=== PATIENT | female | born 1950 | race Caucasian/White ===

== ENCOUNTER 2017-11-10 11:49 | Day surgery (SDC) | payer BC ==
--- NOTE | 2017-11-10 06:54 | History and Physical Report ---
DATE: 11/09/2017. CHIEF COMPLAINT AND HISTORY OF CHIEF COMPLAINT: This patient presents with a history of a postlaminectomy radiculopathy. She is here for an implanted spinal catheter infusion trial with hydromorphone. PAST MEDICAL HISTORY: Hypertension. PAST SURGICAL HISTORY: Lumbar spinal fusion. SOCIAL HISTORY: Caffeine. FAMILY HISTORY: Cancer, hypertension. MEDICATIONS ON ADMISSION: To be provided. ALLERGIES: Celexa and adhesive tape. REVIEW OF SYSTEMS: The patient is appropriate and in no acute distress. The remainder of the systems review shows glasses, headaches, blood pressure problems, degenerative arthritis, irritable bowel syndrome, depression, difficulty sleeping. PHYSICAL EXAMINATION: General: Height and weight are not known. Vital Signs: Not available. HEENT: Within normal limits. Lungs: Clear. Heart: Regular rate and rhythm. Abdomen: Nontender. Musculoskeletal: Examination of the musculoskeletal system shows diffuse tenderness throughout the lumbar spine. Range of motion does produce pain throughout the low back and extending into the lower extremities. Lower extremity functionality is intact. There does not appear to be any focal sensory or motor deficits. Ambulation: Intact. Neurologic: Cranial nerves are intact. IMPRESSION: 1. POSTLUMBAR LAMINECTOMY SYNDROME, ICD-10 CODE M96.1. 2. LUMBAR RADICULOPATHY, ICD-10 CODE M54.16 AND M54.17. PLAN: The patient is here for an implanted spinal catheter infusion trial with hydromorphone. The potential risks, side effects, and complications have all been carefully reviewed and discussed. The implanted catheter technique has been reviewed and discussed. Information was provided by the optometrist/practice owner and has been reviewed. The potential risks, side effects, and complications have been discussed and include spinal cord injury, nerve root injury, paralysis, and spinal headache. She was given the opportunity to talk to a [employer] eligibility services representative directly, and all of her questions were answered. We will consider the procedure an overnight stay; although an outpatient status could be assigned. A blood patch will be performed as an adjunct measure to help prevent a spinal headache. This will require the patient to lie flat for four hours and then she will be slowly elevated for one hour. The patient understands. All of her questions have been answered. JOB NUMBER: [id number] cc: Adriana Gary
[~2017-11-10 11:49] MED LIST: ACETAMINOPHEN 1,000 MG/100 ML BTL IV ONE; CEFAZOLIN 2 Gram 2 GM/50 ML BAG IVPB ONE; FAMOTIDINE 20MG TABLET PO ONE; HYDROMORPHONE PF 2MG/ML AMP 0.008 MG in 0.9 % SODIUM CHLORIDE 10ML VIA 0.996 ML IV ONE; HYDROMORPHONE PF 2MG/ML AMP 4 MG in 0.9 % SODIUM CHLORIDE 500ML 498 ML IV ONE; MECLIZINE 25 MG TABLET PO ONE; METOCLOPRAMIDE 10 MG TABLET PO ONE
[2017-11-10] MEDS ORDERED: LIDOCAINE 1% W/EPI 1:200,000 MPF 30ML SQ ONE (11:50)
[2017-11-10] MEDS ORDERED: MIDAZOLAM HCL 2MG/2ML VIAL IV ONE (11:50)
[2017-11-10] MEDS ORDERED: FENTANYL PF 100MCG/2ML VIAL IV ONE (11:50)
[2017-11-10] MEDS ORDERED: LIDOCAINE 2% MDV (20MG/ML) 20ML VIAL IV ONE (11:50)
[2017-11-10] MEDS ORDERED: BUPIVACAINE 0.5% W/EPI MPF 30 ML VIAL IVP ONE (11:50)
[2017-11-10] MEDS ORDERED: CEFAZOLIN 1G VIAL IM ONE (11:50)
[2017-11-10] MEDS ORDERED: PROPOFOL 10 MG/ML VIAL IV ONE (11:50)
[2017-11-10] MEDS ORDERED: METOCLOPRAMIDE 10 MG TABLET PO PRN (14:55)
[2017-11-10] MEDS ORDERED: DIPHENHYDRAMINE HCL 25 MG CAPSULE PO PRN ×2 (14:55)
[2017-11-10] MEDS ORDERED: ACETAMINOPHEN 325 MG TAB PO PRN ×2 (14:55)
[2017-11-10] MEDS ORDERED: TEMAZEPAM 15 MG CAPSULE PO PRN ×2 (14:55)
[2017-11-10] MEDS ORDERED: DIPHENHYDRAMINE HCL 50 MG/ML VIAL IVP PRN ×2 (14:55)
[2017-11-10] MEDS ORDERED: HYDROMORPHONE HCL 2 MG/ML VIAL IM PRN ×2 (14:55)
[2017-11-10] MEDS ORDERED: NALOXONE 0.4 MG/1 ML VIAL IVP PRN (14:55)
[2017-11-10] MEDS ORDERED: SENNOSIDES/DOCUSATE SODIUM UD CAPSULE PO PRN ×2 (14:55)
[2017-11-10] MEDS ORDERED: AL HYDROX/MAG HYDROX 30ML UD PO PRN (14:55)
[2017-11-10] MEDS ORDERED: METOCLOPRAMIDE HCL 10 MG/2 ML VIAL IVP PRN (14:55)
[2017-11-10] MEDS ORDERED: OXYCODONE/APAP 10MG-325MG TABLET PO PRN ×2 (14:55)
[2017-11-10] MEDS ORDERED: HYDROCODONE/APAP 7.5/325MG TABLET PO PRN ×2 (14:55)
[2017-11-10] MEDS: RINGERS SOLUTION,LACTATED 1,000 ML IV SCH ×3 (16:19→23:48)
[2017-11-10] MEDS ORDERED: MORPHINE SULFATE 15 MG TABLET.ER PO ONE (16:45)
[2017-11-10] MEDS: CEFAZOLIN 2 Gram 2 GM/50 ML BAG IVPB SCH (22:00)
[2017-11-10] MEDS ORDERED: AMLODIPINE BESYLATE 5MG TAB PO SCH (22:00)
[2017-11-10] MEDS ORDERED: SIMVASTATIN 10MG TABLET PO SCH (22:00)
[2017-11-11] MEDS: CEFAZOLIN 2 Gram 2 GM/50 ML BAG IVPB SCH (05:39)
[2017-11-11] MEDS ORDERED: MORPHINE SULFATE 15 MG TABLET.ER PO SCH (06:00)
[2017-11-11] MEDS: RINGERS SOLUTION,LACTATED 1,000 ML IV SCH (06:10)
[2017-11-11] MEDS ORDERED: FLUOXETINE HCL 20 MG CAPSULE PO SCH (10:00)
[2017-11-11] MEDS ORDERED: HYDROCHLOROTHIAZIDE 12.5 MG CAPSULE PO SCH (10:00)
[2017-11-11] MEDS ORDERED: LISINOPRIL 20 MG TABLET PO SCH (10:00)
[2017-11-11] MEDS ORDERED: BUPROPION HCL 150 MG TAB.SR.12H PO SCH (10:00)
[2017-11-11] MEDS ORDERED: DOCUSATE SODIUM 100 MG CAPSULE PO SCH (10:00)
--- NOTE | 2017-11-12 16:08 | Medical Records Consult ---
DATE OF SURGERY: 11/10/17. PREOPERATIVE DIAGNOSES: 1. POST LUMBAR LAMINECTOMY SYNDROME, ICD-10 CODE = M96.1. 2. LUMBAR RADICULOPATHY ICD-10 CODE = M54.16 AND M54.17. SURGERY: 1. FLUOROSCOPIC-GUIDED ACCESS SPINAL SPACE AT L2-3, PLACEMENT OF THIN-WALLED SPINAL CATHETER T12. 2. DIAGNOSTIC MYELOGRAPHY WITH RADIOLOGIC SUPERVISION AND INTERPRETATION. 3. SPINAL OPIOID BOLUS OF HYDROMORPHONE 0.002 MG SPINAL SPACE. 4. INCISION, SUBCUTANEOUS DISSECTION AND ANCHORING OF SPINAL CATHETER TO SUPRASPINOUS FASCIA USING ANCHORING DEVICE AND NONABSORBABLE SUTURE. 5. INCISION, SUBCUTANEOUS DISSECTION AND CREATION OF SUBCUTANEOUS POUCH AT RIGHT POSTERIOR GLUTEAL MARGIN ULTIMATELY FOR PUMP. FORMATION OF SMALL SUBCUTANEOUS POUCH. 6. SPINAL CATHETER TUNNELED INTO POSTERIOR GLUTEAL POUCH. SPINAL CATHETER INTERFACE RESECTED WITH SECOND CATHETER COMPONENT BY WAY OF CONNECTOR. SECOND CATHETER COMPONENT TUNNELED 6 CM SUPERIOR EXITING SKIN, INTERFACED TO EXTERNAL PUMP, STARTING INFUSION AT 0.08 MG HYDROMORPHONE PER DAY. 7. CLOSURE OF MIDLINE INCISION WITH VICRYL FOR FASCIA AND RUNNING SUBCUTICULAR VICRYL FOR SKIN. CLOSURE OF POSTERIOR GLUTEAL POUCH WITH RUNNING NYLON. 8. EPIDURAL BLOOD PATCH AT L3-4. 20 ML AUTOLOGOUS BLOOD DRAWN STERILE TECHNIQUE. 9. PLACEMENT OF DRESSINGS SECURING CATHETER AND ALL CONNECTIONS WELL INCISIONAL SITES UNDER STERILE DRESSING. The patient was transported to the Recovery Room flat with pillow under head and knees, stable, showing no side-effects from the procedure or the sedation. She will be kept overnight for observatoin and discharged in the morning. DISCHARGE INSTRUCTIONS: 1. Sites are to remain clean and dry, no showing or bathing in any way that would disrupt dressings. 2. Standard medications resumed including Levaquin, the antibiotic, 500 mg once a day for 14 days. 3. The trial will run 12 to 14 days. During this period of time, we will evaluate the pain control, functionality, quality of life, medication reduction. 4. Reprogrammings will be scheduled during this 14 day period. Once we have increased the infusion to the desired level of pain control, we will evaluate for possible permanent implant. 5. Spinal opioid side-effects: respiratory depression, nausea, vomiting, constipation, urinary retention, lightheadedness, or rash have all been discussed and reviewed. All other instructions provided. Numbers to contact if problems given. We will evaluate her in 24 to 48 hours. cc: Dr. Eldridge JOB NUMBER: [id number] MTDD
--- NOTE | 2017-11-13 00:53 | RADIOLOGY REPORT ---
EXAM: SPINE, 1 VIEW HISTORY: PAIN PUMP TRIAL. TECHNIQUE: Single AP view of the thoracolumbar spine. COMPARISON: AP thoracolumbar spine 05/22/15. FINDINGS: Battery pack again seen overlying the left lower quadrant of the abdomen. Two stimulating wires extend from this to overlie the spine at the approximate L1-2 level and then ascend up such that their superior-most extent is not included on this film. However, as visualized the segmented portion of the wires does extend up to at least the level of the superior aspect of the body of T7. Lumbar dextroscoliosis with degenerative change in the spine. Some wire and catheter density overlying the right side of the abdomen. IMPRESSION: SPINAL STIMULATOR WIRES EXTEND UP TO THE VERY SUPERIOR EDGE OF THE FILM BUT AT LEAST TO THE T7 LEVEL, DESCRIBED ABOVE. JOB NUMBER: [id number] MTDD
--- NOTE | 2017-11-18 09:53 | Operative Note ---
DATE OF SURGERY: 11/10/17. PREOPERATIVE DIAGNOSES: 1. POST LUMBAR LAMINECTOMY SYNDROME, ICD-10 CODE = M96.1. 2. LUMBAR RADICULOPATHY ICD-10 CODE = M54.16 AND M54.17. SURGERY: 1. FLUOROSCOPIC-GUIDED ACCESS SPINAL SPACE AT L2-3, PLACEMENT OF THIN-WALLED SPINAL CATHETER T12. 2. DIAGNOSTIC MYELOGRAPHY WITH RADIOLOGIC SUPERVISION AND INTERPRETATION. 3. SPINAL OPIOID BOLUS OF HYDROMORPHONE 0.002 MG SPINAL SPACE. 4. INCISION, SUBCUTANEOUS DISSECTION AND ANCHORING OF SPINAL CATHETER TO SUPRASPINOUS FASCIA USING ANCHORING DEVICE AND NONABSORBABLE SUTURE. 5. INCISION, SUBCUTANEOUS DISSECTION AND CREATION OF SUBCUTANEOUS POUCH AT RIGHT POSTERIOR GLUTEAL MARGIN ULTIMATELY FOR PUMP. FORMATION OF SMALL SUBCUTANEOUS POUCH. 6. SPINAL CATHETER TUNNELED INTO POSTERIOR GLUTEAL POUCH. SPINAL CATHETER INTERFACE RESECTED WITH SECOND CATHETER COMPONENT BY WAY OF CONNECTOR. SECOND CATHETER COMPONENT TUNNELED 6 CM SUPERIOR EXITING SKIN, INTERFACED TO EXTERNAL PUMP, STARTING INFUSION AT 0.08 MG HYDROMORPHONE PER DAY. 7. CLOSURE OF MIDLINE INCISION WITH VICRYL FOR FASCIA AND RUNNING SUBCUTICULAR VICRYL FOR SKIN. CLOSURE OF POSTERIOR GLUTEAL POUCH WITH RUNNING NYLON. 8. EPIDURAL BLOOD PATCH AT L3-4. 20 ML AUTOLOGOUS BLOOD DRAWN STERILE TECHNIQUE. 9. PLACEMENT OF DRESSINGS SECURING CATHETER AND ALL CONNECTIONS WELL INCISIONAL SITES UNDER STERILE DRESSING. PROCEDURE: Intravenous line, vital sign monitoring, IV sedation by Anesthesia, patient position on the operating room table prone. Sterile prep, sterile technique. Under imaging, the spinal space for access was identified at L2-3 with a possible epidural blood patch at 3-4. The skin at both sites infiltrated. A 20-gauge spinal needle, beveled with a long axis in a paramedian approach was inserted into the spinal space at L2-3. With CSF flow, a thin- walled spinal catheter was advanced and positioned at T12. The catheter was clamped to stop CSF leak. Skin above and below the needle infiltrated, incision made, and subcutaneous dissection was conducted to the supraspinous fascia. The needle was removed and the catheter was anchored to the supraspinous fascia with a locking anchor and nonabsorbable suture. There was still CSF through the catheter identified. Diagnostic myelography was then performed, the resulting flow characteristics showed appropriate flow in the spinal space. Myelogram characteristics noted. Confirming position and a straight catheter, a bolus of Hydromorphone at 0.002 mg given into the spinal space. The catheter was clamped. An incision was then right of the midline at the posterior/superior gluteal margin. The skin infiltrated, incision made, and subcutaneous dissection was conducted to form a small pouch. A tunneling tool was then used to carry the spinal catheter into the gluteal pouch and then this catheter was interfaced with a second catheter component, which was then tunneled 6 cm superior to this pouch and exited the skin. This external catheter was then interfaced to an external pump, which was set to deliver by continuous infusion of Hydromorphone at 0.008 mg a day, which was set to deliver 0.08 mg per day Hydromorphone. The midline incision was closed with Vicryl for fascia, running subcuticular Vicryl for skin. The posterior gluteal margin pouch incision was closed with running nylon. At L3-4, which is one level below the dural puncture , an 18-gauge Tuohy needle with [id number] into the epidural space. Simultaneously, 20 mL of autologous blood drawn sterile technique from the left antecubital. This blood, maintaining sterility, was then placed onto the field and an epidural blood patch was performed at this level with this blood. The epidural needle was removed. A sterile dressing was applied to all sites and securing the catheter under sterile dressing along with all of its connections. With the pump infusion, the patient was turned off the bed supine, pillow under head and knees, and flat. Transported to the Recovery Room stable. No side- effects from the procedure or the sedation. Full functionality of upper and lower extremities was noted. Appropriate conversational skills identified. She was monitored. She will be transported to the Floor and monitored flat for four hours, slowly elevated for one, and then be kept overnight for observation. DISCHARGE INSTRUCTIONS: 1. Sites are to remain clean and dry, no showing or bathing in any way that would disrupt dressings. 2. Standard medications resumed including Levaquin, the antibiotic, 500 mg once a day for 14 days. 3. The trial will run 12 to 14 days. During this period of time, we will evaluate the pain control, functionality, quality of life, medication reduction. 4. Reprogrammings will be scheduled during this 14 day period. Once we have increased the infusion to the desired level of pain control, we will evaluate for possible permanent implant. 5. Spinal opioid side-effects: respiratory depression, nausea, vomiting, constipation, urinary retention, lightheadedness, or rash have all been discussed and reviewed. All other instructions provided. Numbers to contact if problems given. We will evaluate her in 24 to 48 hours. cc: Dr. Eldridge JOB NUMBER: [id number] dictated on 11/17/17. [facility]
== END 2017-11-11 10:40 | disposition home or self-care (01) ==
LOC: SUR 11:49 → MEDSURG 14:54 → SUR 11-11 10:40
PROVIDERS: ATTEND Pain Medicine Interventional Pain Medicine
DX: M96.1 Postlaminectomy syndrome, not elsewhere classified (principal); M54.16 Radiculopathy, lumbar region; M54.17 Radiculopathy, lumbosacral region; E78.00 Pure hypercholesterolemia, unspecified; F31.9 Bipolar disorder, unspecified; I10 Essential (primary) hypertension; K21.9 Gastro-esophageal reflux disease without esophagitis
CPT/HCPCS: 62350; 62360; 00630; 72020; 94760 ×2; Q9967; J3490 ×2; J3010; J0690 ×2; J1170; J7040; J7120

== ENCOUNTER → 2017-11-24 | Day surgery (SDC) | payer BC ==
[~2017-11-24] MED LIST changes: +*PACU ONLY* KETAMINE HCL 10 MG/ML (20ML) VIAL IV ONE; +BUPIVACAINE 0.5% W/EPI MPF 30 ML VIAL IVP ONE; +FENTANYL PF 100MCG/2ML VIAL IV ONE; +HYDROMORPHONE HCL 0.04 GM in 0.9 % SODIUM CHLORIDE 10ML VIA 20 ML IV ONE; +HYDROMORPHONE PF 2MG/ML AMP 0.004 MG in 0.9 % SODIUM CHLORIDE 10ML VIA 0.998 ML IV ONE; -HYDROMORPHONE PF 2MG/ML AMP 0.008 MG in 0.9 % SODIUM CHLORIDE 10ML VIA 0.996 ML IV ONE; -HYDROMORPHONE PF 2MG/ML AMP 4 MG in 0.9 % SODIUM CHLORIDE 500ML 498 ML IV ONE; +LIDOCAINE 1% W/EPI 1:200,000 MPF 30ML SQ ONE; +LIDOCAINE 2% MDV (20MG/ML) 20ML VIAL IV ONE; +MIDAZOLAM HCL 2MG/2ML VIAL IV ONE; +PROPOFOL 10 MG/ML VIAL IV ONE
--- NOTE | 2017-11-24 02:29 | History and Physical Report ---
DATE: 11/23/2017. CHIEF COMPLAINT AND HISTORY OF CHIEF COMPLAINT: This patient presents with a history of intractable post lumbar laminectomy radiculopathy. Implanted spinal catheter infusion trial is ongoing and is being completed today. She has achieved greater than 75 percent pain control and is here for permanent implant. PAST MEDICAL HISTORY: Hypertension. PAST SURGICAL HISTORY: Lumbar spinal surgery. MEDICATIONS ON ADMISSION: To be provided. ALLERGIES: Celexa, adhesive tape. SOCIAL HISTORY: Caffeine. FAMILY HISTORY: Cancer, hypertension. REVIEW OF SYSTEMS: The patient seems appropriate and in no acute distress. The remainder of the systems review shows glasses, headaches, blood pressure problems, degenerative arthritis, irritable bowel syndrome, depression, difficulty sleeping. PHYSICAL EXAMINATION: General: Height and weight are unavailable. Vital Signs: Unavailable. HEENT: Within normal limits. Lungs: Clear. Heart: Regular rate and rhythm. Abdomen: Nontender. Musculoskeletal: Examination of the musculoskeletal system shows the dressings securing the implanted catheter trial in place. An external pump is identified and is interfaced to the catheter. Primary pain pattern is a postlaminectomy pain across the back and extending into both legs. Her motor and sensory field function shows some deficits across the front and back surfaces. There is a generalized weakness to both legs. Ambulation: No assistive device utilized. Neurologic: Cranial nerves are intact. IMPRESSION: 1. POST LUMBAR LAMINECTOMY SYNDROME, ICD-10 CODE M96.1. 2. LUMBAR RADICULOPATHY, ICD-10 CODE M54.16 AND M54.17. 3. IMPLANTED SPINAL CATHETER INFUSION TRIAL WITH HYDROMORPHONE. PLAN: The patient is here to complete the implant process with removal of the external components and implantation of the pump and interfacing this to the indwelling catheter. Although an overnight stay will be evaluated, this could easily be an outpatient procedure. The potential risks, side effects, and complications have all been reviewed and discussed. JOB NUMBER: [id number] cc: Adriana Gary
--- NOTE | 2017-11-25 07:29 | Operative Note ---
DATE OF SURGERY: 11/24/2017. PREOPERATIVE DIAGNOSIS: 1. POST LUMBAR LAMINECTOMY SYNDROME, ICD-10 CODE M96.1. 2. LUMBAR RADICULOPATHY, ICD-10 CODE M54.16 AND M54.17. 3. IMPLANTED SPINAL CATHETER INFUSION TRIAL WITH HYDROMORPHONE. POSTOPERATIVE DIAGNOSIS: 1. POST LUMBAR LAMINECTOMY SYNDROME, ICD-10 CODE M96.1. 2. LUMBAR RADICULOPATHY, ICD-10 CODE M54.16 AND M54.17. 3. IMPLANTED SPINAL CATHETER INFUSION TRIAL WITH HYDROMORPHONE. OPERATION: 1. Incision, subcutaneous dissection, and creation of subcutaneous pouch at right posterior gluteal margin. 2. Resection and revision of internal spinal catheter interfaced with second catheter component by a connector. 3. Removal of external spinal catheter. 4. Interface revised catheter to pump, 20 mL programmable, prefilled with hydromorphone 1.0 mg per mL interfaced with revised catheter. 5. Placement of pump into formed pouch at right posterior gluteal margin. 6. Placement of curved 24-gauge Meade needle through the access port for the programmable pump, aspirating and clearing catheter of 1.0 mL of opioid and cerebrospinal fluid mixture. 7. Diagnostic myelography with radiologic supervision and interpretation. 8. Placement of pump into pouch and secured to posterior fascia with nonabsorbable suture at three points with pump eyelets. 9. Closure of incision with Vicryl for the fascia and running subcuticular Vicryl for the skin. Dermabond closure. 10. Programming of pump to deliver by continuous infusion hydromorphone at 0.23 mg per day. SURGEON: Chris Ponce D.O. ANESTHESIA: Local sedation. ANESTHESIA PROVIDER: Rosy Momin CRNA INDICATION: This patient presents with a history of intractable postlumbar laminectomy radiculopathy. An implanted spinal catheter infusion trial with hydromorphone provided 75 to 80 percent pain control. Due to the failure of all other therapies and the success of the implanted catheter trial, she is here for implantation of a permanent system. DESCRIPTION OF PROCEDURE: Intravenous lines, vital sign monitoring, and intravenous sedation. Prepped and draped with sterile technique with the patient positioned prone. All of the external dressings were removed. At the right posterior gluteal margin, the skin was infiltrated. An incision was made and subcutaneous dissection was conducted to form a pouch of suitable size and depth for the pump identified as a Medtronic 20 mL programmable pump. The interface between the internal permanent catheter and the external catheter was identified and clamped. The external catheter was cut and removed by pulling away from the incision. The internal catheter was then resected and interfaced with the second catheter component by way of the connector. A new pump was placed onto the field, 20 mL programmable Medtronic, prefilled with hydromorphone at 1.0 mg per mL. The revised catheter was interfaced to the pump. Antibiotic irrigation and Bovie for hemostasis at the pouch. The pump was then placed into the pouch and secured to the posterior fascia with nonabsorbable suture. A 24-sujata Meade needle was then inserted into the access port of the pump and 1.0 mL of catheter contents was aspirated clearing the catheter of opioid and cerebrospinal fluid mixture. Contrast was then injected through the access port. The resulting myelogram with radiologic supervision and interpretation showed contrast moving through the internal network of the pump with no obstructions. Contrast was seen through the pump catheter connection with no leaks or obstructions. The catheter tip was seen at T12-L1 with appropriate flow characteristics noted. Functionality was assured. With the pump in the pouch, the incision was closed with Vicryl for the fascia and running subcuticular Vicryl for the skin. Dermabond closure. The pump was then programmed to deliver by continuous infusion hydromorphone at 0.23 mg a day. The patient was transported to the recovery room stable, showing no side effects from the procedure or the sedation. When fully awake and alert, she was prepared for discharge. DISCHARGE INSTRUCTIONS: 1. The sites are to remain clean and dry. No showering or bathing in any way that would disrupt the dressings. If this happens, contact the clinic. 2. Standard medications to be resumed including Levaquin the antibiotic 500 mg once a day for 14 days. 3. The patient will be seen in the office in five to seven days to evaluate the site. At that point, she will be cleared for further activities. 4. All other instructions were provided and numbers to contact with problems were given. 5. She was then discharged. JOB NUMBER: [id number] cc: Adriana Gary
== END | disposition home or self-care (01) ==
LOC: SUR 09:48
PROVIDERS: ATTEND Pain Medicine Interventional Pain Medicine
DX: M96.1 Postlaminectomy syndrome, not elsewhere classified (principal); M54.16 Radiculopathy, lumbar region; M54.17 Radiculopathy, lumbosacral region; F31.9 Bipolar disorder, unspecified; I10 Essential (primary) hypertension; E78.00 Pure hypercholesterolemia, unspecified
CPT/HCPCS: C1755; J1170

== ENCOUNTER 2018-06-03 05:34 | Day surgery (SDC) | payer BC ==
[~2018-06-03 05:34] MED LIST changes: -*PACU ONLY* KETAMINE HCL 10 MG/ML (20ML) VIAL IV ONE; -BUPIVACAINE 0.5% W/EPI MPF 30 ML VIAL IVP ONE; -FENTANYL PF 100MCG/2ML VIAL IV ONE; -HYDROMORPHONE HCL 0.04 GM in 0.9 % SODIUM CHLORIDE 10ML VIA 20 ML IV ONE; -HYDROMORPHONE PF 2MG/ML AMP 0.004 MG in 0.9 % SODIUM CHLORIDE 10ML VIA 0.998 ML IV ONE; -LIDOCAINE 1% W/EPI 1:200,000 MPF 30ML SQ ONE; -LIDOCAINE 2% MDV (20MG/ML) 20ML VIAL IV ONE; -MIDAZOLAM HCL 2MG/2ML VIAL IV ONE; -PROPOFOL 10 MG/ML VIAL IV ONE
[2018-06-03] MEDS ORDERED: MIDAZOLAM HCL 2MG/2ML VIAL IV ONE (05:35)
[2018-06-03] MEDS ORDERED: PROPOFOL 10 MG/ML VIAL IV ONE (05:35)
[2018-06-03] MEDS ORDERED: FENTANYL PF 100MCG/2ML VIAL IV ONE (05:35)
[2018-06-03] MEDS ORDERED: LIDOCAINE 1% W/EPI 1:200,000 MPF 30ML SQ ONE (05:35)
[2018-06-03] MEDS ORDERED: HYDROCODONE/APAP 7.5/325MG TABLET PO ONE (05:35)
[2018-06-03] MEDS ORDERED: LIDOCAINE 2% MDV (20MG/ML) 20ML VIAL IV ONE (05:35)
[2018-06-03] MEDS ORDERED: BUPIVACAINE 0.5% W/EPI MPF 30 ML VIAL IVP ONE (05:35)
[2018-06-03] MEDS ORDERED: CEFAZOLIN 1G VIAL IM ONE (05:35)
[2018-06-03] MEDS ORDERED: CEFAZOLIN 2 Gram 2 GM/50 ML BAG IVPB ONE (06:00)
[2018-06-03] MEDS ORDERED: ACETAMINOPHEN 1,000 MG/100 ML BTL IV ONE (06:00)
[2018-06-03] MEDS ORDERED: FAMOTIDINE 20MG TABLET PO ONE (06:00)
[2018-06-03] MEDS ORDERED: METOCLOPRAMIDE 10 MG TABLET PO ONE (06:00)
[2018-06-03] MEDS ORDERED: MECLIZINE 25 MG TABLET PO ONE (06:00)
--- NOTE | 2018-06-03 06:21 | History and Physical - [place] ---
CHIEF COMPLAINT/HISTORY OF CHIEF COMPLAINT: This patient presents with a history of post lumbar laminectomy with a spinal cord stimulator implant dated 05/22/15. Over the last number of months to year she has had an increasing amount of difficulties in controlling her pain with this system. Her pain pattern appears to be extending, moving higher and lower into her lower extremities and higher into her low back. The current generator has been unable to program these new areas. The conservative therapies have failed. We recommended changing her generator to the new Wavewriter technology since it presents with greater options and opportunities in waveform propagation and the ability to overlap different waveforms to help control the pain in these new areas. Nothing else appears to be helping. PAST MEDICAL HISTORY: Hypertension. PAST SURGICAL HISTORY: Lumbar spinal surgery, carpal tunnel surgery, stimulator implant and pump implant. MEDICATIONS ON ADMISSION: List to be provided. ALLERGIES: CELEXA AND ADHESIVE TAPE. FAMILY/PSYCHOSOCIAL HISTORY: Hypertension and cancer. SYSTEMS REVIEW: The patient is appropriate in no acute distress. The remainder of the systems review is positive for glasses, headaches, blood pressure problems, degenerative arthritis, inflammatory and irritable bowel syndrome, and difficulty sleeping. PHYSICAL EXAMINATION: Height is 5'4", and weight is 170. No vital signs. HEENT: Within normal limits. LUNGS: Clear. HEART: Rapid and regular. ABDOMEN: Nontender. MUSCULOSKELETAL: Examination of the musculoskeletal system shows the stimulator generator in the left posterior gluteal margin and the incision is intact. Chronic pain pattern low back and bilateral lower extremities. NEUROLOGIC: Cranial nerves are intact. IMPRESSION: 1. POST LUMBAR LAMINECTOMY SYNDROME, ICD-10 CODE M96.1 WITH RADICULOPATHY, ICD- 10 CODE M54.16 AND M54.17. 2. SPINAL CORD STIMULATOR INTERNAL GENERATOR. PLAN: The patient is here for a generator change to the new Wavewriter technology in an attempt to gain control of new areas of pain. The procedure will be considered outpatient. JOB NUMBER: [id number] [facility]
--- NOTE | 2018-06-03 12:55 | Operative Note ---
DATE: 06/03/2018. PRIMARY CARE PHYSICIAN: Lidya Eldridge M.D. PREOPERATIVE DIAGNOSIS: 1. POST LUMBAR LAMINECTOMY RADICULOPATHY, ICD-10 CODE M96.1, 2. ICD-10 CODE M54.16 AND M54.17. 3. SPINAL CORD STIMULATOR INTERNAL GENERATOR. PROCEDURES: Fluoroscopically guided incision, subcutaneous dissection, and removal and replacement of internal pulse generator at the left posterior gluteal margin. SURGEON: Chris Ponce D.O. ANESTHESIA: Local sedation. ANESTHESIA PROVIDER: Robin Brand CRNA. INDICATIONS: This patient presents with a history of intractable postlaminectomy lumbar radiculopathy. A spinal cord stimulator with internal generator has been in place for a number of years. There has been a gradual progression of her pain extending toward the opposite extremity and higher up into her spine. Because of this new pain pattern, the current generator and stimulator have been unable to keep up with the progression of pain. She is here for battery change, keeping the leads the same, to improve stimulation patterns and gain control over the new areas of pain. DESCRIPTION OF PROCEDURE: Intravenous line, vital sign monitoring, and intravenous sedation. Prepped and draped with sterile technique with the patient positioned prone. The generator at the left posterior gluteal margin was marked and infiltrated. An incision was made and subcutaneous dissection was conducted to the generator pouch. This was opened and the generator was exteriorized and from the indwelling leads. The new WaveWriter internal pulse programmable rechargeable generator by [employer] was placed onto the field. The new generator was then interfaced with the indwelling leads. Antibiotic irrigation and Bovie for hemostasis. The generator was placed into the pouch, and the incision was closed using Stratafix suture; #2-0 for the fascia and #3-0 for the skin. Dermabond closure. The patient was transported to the recovery room stable with no side effects from the procedure or the sedation. When awake and alert, complex programming of the internal generator was performed over 20 minutes re-establishing stimulation and pain control to all of the appropriate areas. DISCHARGE INSTRUCTIONS: 1. The sites are to remain clean and dry. Although the Dermabond will allow showering, she should not sit in water or use hot tubs. 2. The office is to contact the patient to set up an appointment in seven to ten days to evaluate the site. Until then she is to keep her activities low, limiting bending, lifting, pushing, and pulling. 3. All other instructions were provided. 4. The antibiotics have been called in. She will start this with Levaquin 500 mg once a day for 14 days. JOB NUMBER: [id number] cc: Adriana Gary
== END 2018-06-03 09:04 | disposition home or self-care (01) ==
LOC: SUR 05:34
PROVIDERS: ATTEND Pain Medicine Interventional Pain Medicine
DX: M96.1 Postlaminectomy syndrome, not elsewhere classified (principal); M54.16 Radiculopathy, lumbar region; M54.17 Radiculopathy, lumbosacral region; I10 Essential (primary) hypertension; E78.00 Pure hypercholesterolemia, unspecified; G47.33 Obstructive sleep apnea (adult) (pediatric)
CPT/HCPCS: 63685; 00300; 95972; J3010; J0690; C1820